=== PATIENT | female | born 1960 | race Caucasian/White ===

== ENCOUNTER → 2016-06-29 | Outpatient (CLI) | payer OTHER ==
--- NOTE | 2016-06-29 16:17 | DX ---
DEXA Bone Mineral Densitometry Clinical Indications: Postmenopausal, post hysterectomy and oophorectomy, right ankle fracture x2 Comparison: May 31, 2014 (low bone density) Technique: Bone Mineral Densitometry (BMD) by Dual Energy X-Ray Absorptiometry (DEXA) was performed utilizing the [employer] scanner. The lumbar spine was evaluated in the AP projection. The bilat eral hips and forearm were evaluated in the AP projection. Vertebral fracture assessment was also pe rformed. AP Lumbar Spine: Th L3 and L4 vertebral bodies were evaluated. L1 and L2 are excluded due to mild co mpressions. BMD: 1.058 gm/cm2 T-score: -1.3 SD Z-score: 0.1 SD No significant change in L3 and L4. AP Left Hip: Neck BMD: 0.785 gm/cm2 T-score: -1.8 SD Z-score: -0.5 SD No significant change in total BMD AP Right Hip: Neck BMD: 0.806 gm/cm2 T-score: -1.7 SD Z-score: -0.3 SD No significant change in total BMD AP Left Forearm, 06/29: BMD: 0.843 gm/cm2 T-score: -0.4 SD Z-score: 0.3 SD No significant change. Vertebral Fracture Assessment: No new fracture deformity. No prevertebral aortic calcification, sign ificant marginal bone spurring, facet arthrosis, or intrinsic vertebral body sclerosis that would ef fect the accuracy of the lumbar spine BMD measurement. Conclusion: Considering the lowest measured site, the patient has low bone density. The ten year FRAX risk for any major osteoporotic fracture is 13% and for a hip fracture is 1.6%. Any bone loss in this patient is probably related to aging or estrogen deficiency. To prevent osteoporosis and to promote the patient's bone density, the following recommendations shou ld be considered: 1. Pursue a regular regimen of weightbearing and muscle strengthening exercises in order to reduce t he risk of falls and fractures (as tolerated by the patient's general medical condition). 2. Ensure that daily dietary calcium uptake is maximized. 3. Consider checking the serum vitamin D level. Ensure that intake of vitamin D is 600 IU per day (fo r all ages through 70) 4. Consider follow-up DEXA scan in two years to reassess the rate of bone loss in this patient.
== END ==
LOC: BRMIMAGING 05-10 15:02
PROVIDERS: ATTEND Internal Medicine
DX: M85.80 Other specified disorders of bone density and structure, unspecified site (principal); D50.8 Other iron deficiency anemias; E55.9 Vitamin D deficiency, unspecified

== ENCOUNTER → 2017-04-14 | Outpatient (CLI) | payer OTHER | LOC: CIMAGING 09:57 | PROVIDERS: ATTEND Internal Medicine | DX: Z12.31 Encounter for screening mammogram for malignant neoplasm of breast (principal); Z80.3 Family history of malignant neoplasm of breast | CPT/HCPCS: G0202 ==

== ENCOUNTER → 2017-05-05 | Outpatient (CLI) | payer OTHER | LOC: CIMAGING 10:10 | PROVIDERS: ATTEND Physician Assistant | DX: R10.11 Right upper quadrant pain (principal) | CPT/HCPCS: 76705-PO ==

== ENCOUNTER → 2018-04-17 | Outpatient (CLI) | payer OTHER | LOC: CIMAGING 09:40 | PROVIDERS: ATTEND Internal Medicine | DX: Z12.31 Encounter for screening mammogram for malignant neoplasm of breast (principal) ==

== ENCOUNTER → 2018-08-08 | Outpatient (CLI) | payer OTHER | LOC: CIMAGING 15:06 → EDSTATUS 15:16 → CIMAGING 15:23 | PROVIDERS: ATTEND Nurse Practitioner | DX: M25.551 Pain in right hip (principal); Q65.89 Other specified congenital deformities of hip; M51.36 Other intervertebral disc degeneration, lumbar region | CPT/HCPCS: 73502-PO ==

== ENCOUNTER → 2018-12-07 | Outpatient (CLI) | payer OTHER | LOC: CIMAGING 12:12 ==